=== PATIENT | male | born 1970 | race Caucasian/White ===

== ENCOUNTER 2021-05-01 20:54 | Emergency (ER) | payer OTHER ==
[~2021-05-01 20:54] MED LIST: MICARDIS40 MG PO; NORCO 5-325 TA1 EACH PO; ZOFRAN8 MG PO
== END 2021-05-01 22:03 | disposition home or self-care (01) ==
LOC: FER 20:54
DX: S01.81XA Laceration without foreign body of other part of head, initial encounter (principal); I10 Essential (primary) hypertension; Z23 Encounter for immunization; W22.8XXA Striking against or struck by other objects, initial encounter; Y92.009 Unspecified place in unspecified non-institutional (private) residence as the place of occurrence of the external cause
CPT/HCPCS: 90471; 90715